=== PATIENT | female | born 1985 | race Caucasian/White ===

== ENCOUNTER 2018-07-31 18:58 | Emergency (ER) | payer MEDICAID ==
[2018-08-01 00:55] VITALS: BP 117/70; PULSE 85; RESP 17; TEMP 98.2
--- NOTE | 2018-08-01 15:18 | OBHP ---
Datetime: 07/31/2018 20:11 IP Adm Impression: Term, intrauterine IP Admit Plan: Observation/Evaluation; Discharge home Admit Comment, IP Provider: 33 y/o, , 39.1 wks based on SABINO of 08/06/18 presents to [facility] with vag inal spotting. Vaginal spotting started 17:00 hr mild, red w/o clots. Patient also reprots Irregular CTx Q 1hr for last 5 days and some thick discharge since Last Saturday. Endorses good movements. Denies dysuria, F/C/N/V/D. clinic: [facility], Dr. Collin Barros Last US on 07/23/18: Cephalic presentation, Posterior placenta, BPP 8/8 PMHx: Denies PSHx: Denies Allergies: NKDA Meds: PNVs F/H Noncontributory SOcial Hx: Denies smoking/alcohol/drugs PE Gen: NAD Chest: RRR, S1S2 present Lungs: CTAB ABdomen: SOft, gravid, NT Ext: No pedal edema SVE: No active VB, cervix 1cm, thick, high A/P: 33 y/o, , 39.1 wks based on SABINO of 08/06/18 presents to [facility] with vaginal spotting. EFM and toco monitoring NST reactive, + Accels, No decels, Mod variability Irregular CTx SVE: 1 cm/high/thick Not in active labor Patient to be discharged home with labor precautions provided. Patient advised to F/u with [facility] on 08/04/18 for regular F/U. Case discussed with Dr. Akila Camarillo, PGY1 Pelvic Type - PN: Not Done Extremities - PN: Normal Abdomen - PN: Normal Back - PN: Normal Breast - PN: Not Done Lungs - PN: Normal Heart - PN: Normal Thyroid - PN: Not Done Neurologic - PN: Not Done HEENT - PN: Normal General - PN: Normal FHR - Baseline A Provider: 140 IP Hx Assessment: The History has been Reviewed and is Current EGA AdmitDate IP: 39.1 Vital Signs Provider: Reviewed; Within Normal Limits IP Chief Complaint: Vaginal bleeding NICHD Variability Prov Fetus A: Moderate 6-25bpm NICHD Accel Fetus A IP Provider: [id number] FHR Category Provider Fetus A: Category I NICHD Decel Fetus A IP Provider: None Dilatation, Provider: 1 Effacement, Provider: thick Station, Provider: high Genitourinary Exam: Normal DTRs - PN: Not Done
== END 2018-07-31 20:30 | disposition home or self-care (01) ==
LOC: H.EROB2 18:58
DX: O26.853 Spotting complicating pregnancy, third trimester (principal); O47.1 False labor at or after 37 completed weeks of gestation; Z3A.39 39 weeks gestation of pregnancy